=== PATIENT | male | born 1965 | race Caucasian/White ===

== ENCOUNTER 2017-02-15 01:30 | Inpatient (IN) | payer OTHER ==
[2017-02-15 02:27] LABS: BASOPHIL 0.2 % (0-2); EOSINOPHIL 0.4 % (0-5); HCT 52.7 % (42.0-52.0); LYMPHOCYTE 1.6 % (15-48); MCH 31.8 pg (25.0-31.0); MCHC 36.1 g/dL (32.0-36.0); MCV 88.3 fL (78.0-100.0); MONOCYTE 3.3 % (0-12); MPV 11.2 fL (6.0-9.5); NEUTROPHIL 94.5 % (41-80); PLT 281 K/uL (150-400); RBC 5.97 M/uL (4.70-6.00); RDW 12.8 % (11.5-14.0); WBC 12.2 K/uL (4.0-10.5)
[2017-02-15 02:29] LABS: LACTIC ACID 2.3 mmol/L (0.5-2.2)
[2017-02-15 02:31] LABS: ALBUMIN 4.6 g/dL (3.5-5.0); BILIRUBIN - TOTAL 1.3 mg/dL (0.1-1.0); CREATININE 1.1 mg/dL (0.7-1.2); GLOBULIN (CALCULATION) 3.5 g/dL (2.2-4.2); POTASSIUM 4.9 mmol/L (3.5-5.1); TOTAL PROTEIN 8.1 g/dL (6.4-8.3)
[2017-02-15 02:32] LABS: PRO-BNP 49 pg/mL (0-125); TROPONIN T < 0.010 ng/mL
[2017-02-15 02:33] LABS: PROTHROMBIN TIME 12.8 SECONDS (11.7-14.0); PTT 22.2 SECONDS (23.2-31.4)
[2017-02-15 02:34] LABS: D-DIMER 0.31 ug/mLFEU (0.00-0.41)
[2017-02-15 03:12] LABS: BILIRUBIN NEGATIVE (NEGATIVE); BLOOD 1+ Ery/uL (NEGATIVE); CLARITY CLEAR (CLEAR); COLOR YELLOW (YELLOW); GLUCOSE (U) 2+ mg/dL (NORMAL); KETONE (U) 2+ (MODERATE) mg/dL (NEGATIVE); LEUKOCYTES NEGATIVE Leu/uL (NEGATIVE); NITRITE NEGATIVE (NEGATIVE); PROTEIN 1+ mg/dL (NEGATIVE); UROBILINOGEN 0.2 mg/dL (0.2-1.0)
[2017-02-15 03:17] LABS: BACTERIA TRACE; URINARY RBC RARE; URINARY WBC RARE
[2017-02-15 06:00] LABS: CREATININE 1.1 mg/dL (0.7-1.2); POTASSIUM 4.3 mmol/L (3.5-5.1)
[2017-02-16 05:03] LABS: BASOPHIL 0.5 % (0-2); EOSINOPHIL 3.8 % (0-5); HCT 44.2 % (42.0-52.0); HGB 15.3 g/dl (13.2-18.0); LYMPHOCYTE 18.2 % (15-48); MCH 31.8 pg (25.0-31.0); MCHC 34.6 g/dL (32.0-36.0); MCV 91.9 fL (78.0-100.0); MONOCYTE 8.2 % (0-12); MPV 11.4 fL (6.0-9.5); NEUTROPHIL 69.3 % (41-80); PLT 184 K/uL (150-400); RBC 4.81 M/uL (4.70-6.00); RDW 12.6 % (11.5-14.0)
[2017-02-16 05:06] LABS: WBC 3.9 K/uL (4.0-10.5)
[2017-02-16 05:20] LABS: ALBUMIN 3.4 g/dL (3.5-5.0); BILIRUBIN - TOTAL 0.6 mg/dL (0.1-1.0); GLOBULIN (CALCULATION) 2.7 g/dL (2.2-4.2); POTASSIUM 4.1 mmol/L (3.5-5.1); TOTAL PROTEIN 6.1 g/dL (6.4-8.3)
[2017-02-17 05:13] LABS: BASOPHIL 0.5 % (0-2); HGB 14.6 g/dl (13.2-18.0); LYMPHOCYTE 23.5 % (15-48); MCH 31.8 pg (25.0-31.0); MCHC 35.6 g/dL (32.0-36.0); MCV 89.3 fL (78.0-100.0); MONOCYTE 12.1 % (0-12); NEUTROPHIL 59.9 % (41-80); PLT 198 K/uL (150-400); RBC 4.59 M/uL (4.70-6.00); RDW 12.1 % (11.5-14.0); WBC 4.2 K/uL (4.0-10.5)
[2017-02-17 05:30] LABS: ALBUMIN 3.1 g/dL (3.5-5.0); BILIRUBIN - TOTAL 0.5 mg/dL (0.1-1.0); GLOBULIN (CALCULATION) 2.4 g/dL (2.2-4.2); TOTAL PROTEIN 5.5 g/dL (6.4-8.3)
[2017-02-17] MEDS ORDERED: LANTUS **100 UNITS/ SC (17:28)
[2017-02-17] MEDS ORDERED: XIGDUO XR 5 MG1 EACH PO (17:28)
== END 2017-02-17 17:10 | disposition home or self-care (01) | DRG 871 ==
LOC: FER 01:30 → FMS 10:45
PROVIDERS: Emergency Medicine Emergency Medical Services; ADMIT Internal Medicine
DX: A41.9 Sepsis, unspecified organism (principal); K85.10 Biliary acute pancreatitis without necrosis or infection; K80.00 Calculus of gallbladder with acute cholecystitis without obstruction; E87.2 Acidosis; R65.20 Severe sepsis without septic shock; I10 Essential (primary) hypertension; E11.9 Type 2 diabetes mellitus without complications; Z83.3 Family history of diabetes mellitus; Z82.49 Family history of ischemic heart disease and other diseases of the circulatory system; Z82.3 Family history of stroke
CPT/HCPCS: 36415; 36600; 71010; 71275; 74181; 76705; 80048; 80053; 80061; 81001; 82009; 82150; 82550; 82553; 82803; 82962; 83036; 83605; 83690; 83880; 84145; 84484; 85025; 85379; 85610; 85730; 87040; 87088; 87804; 87899; 93005; C9113; J1815; J2270; J2405; J2543; Q9967